=== PATIENT | female | born 1950 | race Two or more races ===

== ENCOUNTER 2024-02-16 11:05 | Outpatient (CLI) | payer OTHER ==
[2024-02-16 12:04] LABS: HEMATOCRIT 37.9 % (36.0-45.00); MEAN CORPUSCULAR HEMOGLOBIN 31.5 pg (27.00-32.0); MEAN CORPUSCULAR HGB CONC 33.2 g/dl (32.0-36.0); PLATELET COUNT 212 K/uL (150-450); RED BLOOD COUNT 3.99 M/uL (4.00-6.00); RED CELL DISTRIBUTION WIDTH 13.2 % (11.5-14.5)
[2024-02-16 12:05] LABS: HEMOGLOBIN 12.6 g/dL (12.0-15.00)
[2024-02-16 12:55] LABS: PH,URINE 6.5 (5.0-8.0); URINE APPEARANCE Turbid; URINE BILIRRUBIN Negative (NEGATIVE); URINE BLOOD Negative; URINE COLOR Yellow; URINE GLUCOSE Negative (NEGATIVE); URINE LEUKOCYTE Moderate; URINE NITRATE Positive; URINE PROTEIN Negative (NEGATIVE); URINE UROBILINOGEN 0.2 E.U./dl
[2024-02-16 12:59] LABS: URINE EPITHELIAL CELLS 10.6 uL (0.0-38.8); URINE RBC 5.7 uL (0.0-20.8); URINE WBC 161.5 uL (0.0-23.2)
[2024-02-16 13:04] LABS: URINE BACTERIA > 9821.5 uL (0.0-1933)
[2024-02-16 13:19] LABS: ALBUMIN 3.9 gm/dL (3.4-5.0); BILIRUBIN TOTAL 0.57 mg/dL (0.3-1.2); CALCIUM 9.3 mg/dL (8.5-10.1); CREATININE SERUM 0.75 mg/dL (0.55-1.02); GFR 75.33; GLOBULINA 3.4 G/DL (2.4-3.5); POTASSIUM 3.65 mEq/L (3.5-5.1); T4 TOTAL 5.01 UG/DL (4.8-13.9); TOTAL PROTEIN 7.3 gm/dL (6.4-8.2); TSH 0.373 uIU/mL (0.358-3.74)
[2024-02-16 13:47] LABS: T3 TOTAL 0.992 ng/ml (0.846-2.02); VITAMIN D3 25 HYDROXY 37.73 ng/ml (30-120)
== END 2024-02-16 11:07 | disposition home or self-care (01) ==
LOC: LAB 11:05
PROVIDERS: ATTEND Internal Medicine Cardiovascular Disease
DX: I10 Essential (primary) hypertension (principal); E11.9 Type 2 diabetes mellitus without complications; E03.9 Hypothyroidism, unspecified; E78.2 Mixed hyperlipidemia; E55.9 Vitamin D deficiency, unspecified; Z12.11 Encounter for screening for malignant neoplasm of colon

== ENCOUNTER 2024-02-17 13:45 | Outpatient (CLI) | payer OTHER ==
[2024-02-17 14:34] LABS: ob NEGATIVE (NEGATIVE)
== END 2024-02-17 13:46 | disposition home or self-care (01) ==
LOC: LAB 13:45
PROVIDERS: ATTEND Internal Medicine Cardiovascular Disease
DX: I10 Essential (primary) hypertension (principal); E11.9 Type 2 diabetes mellitus without complications; E03.9 Hypothyroidism, unspecified; E78.2 Mixed hyperlipidemia; E55.9 Vitamin D deficiency, unspecified; Z12.11 Encounter for screening for malignant neoplasm of colon

== ENCOUNTER 2024-06-04 11:19 | Outpatient (CLI) | payer OTHER ==
[2024-06-04 12:22] LABS: PH,URINE 6.5 (5.0-8.0); URINE APPEARANCE Clear; URINE BILIRRUBIN Negative (NEGATIVE); URINE BLOOD Negative; URINE COLOR Yellow; URINE GLUCOSE Negative (NEGATIVE); URINE LEUKOCYTE Moderate; URINE NITRATE Positive; URINE PROTEIN Negative (NEGATIVE); URINE UROBILINOGEN 0.2 E.U./dl
[2024-06-04 12:26] LABS: URINE EPITHELIAL CELLS 13.7 uL (0.0-38.8); URINE RBC 6.8 uL (0.0-20.8); URINE WBC 83.7 uL (0.0-23.2)
[2024-06-04 12:29] LABS: MEAN CELL VOLUME 92.9 fL (80.00-100.00); MEAN CORPUSCULAR HEMOGLOBIN 30.9 pg (27.00-32.0); MEAN CORPUSCULAR HGB CONC 33.3 g/dl (32.0-36.0); PLATELET COUNT 236 K/uL (150-450); RED BLOOD COUNT 4.19 M/uL (4.00-6.00); RED CELL DISTRIBUTION WIDTH 13.7 % (11.5-14.5)
[2024-06-04 12:54] LABS: CALCIUM 9.7 mg/dL (8.5-10.1); CHOL HDL RATIO 2.2 (0-5.0); CREATININE SERUM 0.82 mg/dL (0.55-1.02); GFR 67.96; POTASSIUM 3.81 mEq/L (3.5-5.1)
[2024-06-04 13:11] LABS: URINE BACTERIA > 9821.5 uL (0.0-1933)
== END 2024-06-04 11:25 | disposition home or self-care (01) ==
LOC: LAB 11:19
PROVIDERS: ATTEND Internal Medicine Cardiovascular Disease
DX: E11.9 Type 2 diabetes mellitus without complications (principal); I10 Essential (primary) hypertension; E03.9 Hypothyroidism, unspecified; E78.2 Mixed hyperlipidemia

== ENCOUNTER 2024-08-15 12:13 | Outpatient (CLI) | payer OTHER ==
[2024-08-15 13:09] LABS: HEMATOCRIT 36.6 % (36.0-45.00); HEMOGLOBIN 12.2 g/dL (12.0-15.00); MEAN CELL VOLUME 93.9 fL (80.00-100.00); MEAN CORPUSCULAR HEMOGLOBIN 31.2 pg (27.00-32.0); MEAN CORPUSCULAR HGB CONC 33.3 g/dl (32.0-36.0); PLATELET COUNT 217 K/uL (150-450); RED CELL DISTRIBUTION WIDTH 13.6 % (11.5-14.5)
[2024-08-15 13:20] LABS: PH,URINE 7.5 (5.0-8.0); URINE APPEARANCE Clear; URINE BILIRRUBIN Negative (NEGATIVE); URINE BLOOD Negative; URINE COLOR Yellow; URINE GLUCOSE Negative (NEGATIVE); URINE KETONE Negative (NEGATIVE); URINE LEUKOCYTE Moderate; URINE NITRATE Negative; URINE PROTEIN Negative (NEGATIVE); URINE UROBILINOGEN 0.2 E.U./dl
[2024-08-15 13:24] LABS: URINE EPITHELIAL CELLS 2.9 uL (0.0-38.8); URINE RBC 3.3 uL (0.0-20.8); URINE WBC 218.6 uL (0.0-23.2)
[2024-08-15 13:31] LABS: URINE BACTERIA > 9821.5 uL (0.0-1933)
[2024-08-15 14:10] LABS: CALCIUM 8.9 mg/dL (8.5-10.1); CREATININE SERUM 0.73 mg/dL (0.55-1.02); GFR 77.51; POTASSIUM 3.5 mEq/L (3.5-5.1)
== END 2024-08-15 12:17 | disposition home or self-care (01) ==
LOC: LAB 12:13
PROVIDERS: ATTEND Internal Medicine Cardiovascular Disease
DX: E11.9 Type 2 diabetes mellitus without complications (principal); E78.2 Mixed hyperlipidemia; I10 Essential (primary) hypertension

== ENCOUNTER → 2025-02-16 11:39 | Outpatient (CLI) | payer OTHER ==
[2025-02-16 13:02] LABS: HEMATOCRIT 36.6 % (36.0-45.00); HEMOGLOBIN 12.1 g/dL (12.0-15.00); MEAN CELL VOLUME 95.2 fL (80.00-100.00); MEAN CORPUSCULAR HEMOGLOBIN 31.4 pg (27.00-32.0); PLATELET COUNT 225 K/uL (150-450); RED BLOOD COUNT 3.84 M/uL (4.00-6.00); RED CELL DISTRIBUTION WIDTH 13.4 % (11.5-14.5)
[2025-02-16 13:11] LABS: PH,URINE 7.5 (5.0-8.0); URINE APPEARANCE Clear; URINE BILIRRUBIN Negative (NEGATIVE); URINE BLOOD Negative; URINE COLOR Yellow; URINE EPITHELIAL CELLS 2.3 uL (0.0-38.8); URINE GLUCOSE Negative (NEGATIVE); URINE KETONE Negative (NEGATIVE); URINE LEUKOCYTE Trace; URINE NITRATE Negative; URINE PROTEIN Negative (NEGATIVE); URINE UROBILINOGEN 0.2 E.U./dl; URINE WBC 12.3 uL (0.0-23.2)
[2025-02-16 13:18] LABS: URINE BACTERIA > 9821.5 uL (0.0-1933); URINE RBC 1.9 uL (0.0-20.8)
[2025-02-16 14:52] LABS: ALBUMIN 3.8 gm/dL (3.4-5.0); BILIRUBIN TOTAL 0.58 mg/dL (0.3-1.2); CALCIUM 9.2 mg/dL (8.5-10.1); CHOL HDL RATIO 1.9 (0-5.0); CREATININE SERUM 0.73 mg/dL (0.55-1.02); GFR 77.51; GLOBULINA 3.3 G/DL (2.4-3.5); POTASSIUM 3.94 mEq/L (3.5-5.1); T4 TOTAL 4.57 UG/DL (4.8-13.9); TOTAL PROTEIN 7.1 gm/dL (6.4-8.2)
[2025-02-16 14:55] LABS: TSH 0.253 uIU/mL (0.358-3.74)
[2025-02-16 15:01] LABS: T3 TOTAL 0.894 ng/ml (0.846-2.02); VITAMIN D3 25 HYDROXY 31.85 ng/ml (30-120)
== END | disposition home or self-care (01) ==
LOC: LAB 11:39
PROVIDERS: ATTEND Internal Medicine Cardiovascular Disease
DX: I10 Essential (primary) hypertension (principal); E11.9 Type 2 diabetes mellitus without complications; E03.9 Hypothyroidism, unspecified; E78.2 Mixed hyperlipidemia; D64.0 Hereditary sideroblastic anemia; Z12.11 Encounter for screening for malignant neoplasm of colon; E55.9 Vitamin D deficiency, unspecified; M81.0 Age-related osteoporosis without current pathological fracture

== ENCOUNTER 2025-02-20 14:13 | Outpatient (CLI) | payer OTHER ==
[2025-02-20 15:32] LABS: ob NEGATIVE (NEGATIVE)
== END 2025-02-20 14:15 | disposition home or self-care (01) ==
LOC: LAB 14:13
PROVIDERS: ATTEND Internal Medicine Cardiovascular Disease
DX: E03.9 Hypothyroidism, unspecified (principal); I10 Essential (primary) hypertension; E11.9 Type 2 diabetes mellitus without complications; E78.2 Mixed hyperlipidemia; D64.0 Hereditary sideroblastic anemia; Z12.11 Encounter for screening for malignant neoplasm of colon; M81.0 Age-related osteoporosis without current pathological fracture

== ENCOUNTER 2025-06-07 11:41 | Outpatient (CLI) | payer OTHER ==
[2025-06-07 12:32] LABS: URINE APPEARANCE Clear; URINE BILIRRUBIN Negative (NEGATIVE); URINE BLOOD Negative; URINE COLOR Yellow; URINE GLUCOSE Negative (NEGATIVE); URINE KETONE Trace (NEGATIVE); URINE LEUKOCYTE Moderate; URINE NITRATE Positive; URINE PROTEIN Negative (NEGATIVE); URINE UROBILINOGEN 0.2 E.U./dl
[2025-06-07 12:37] LABS: URINE EPITHELIAL CELLS 10.4 uL (0.0-38.8); URINE RBC 2.7 uL (0.0-20.8); URINE WBC 55.5 uL (0.0-23.2)
[2025-06-07 12:48] LABS: BASO % 1.0 % (0.1-1.2); EOS # 0.04 (0.04-0.54); EOS % 0.8 % (0.7-7.0); LYMPH # 1.52 (1.18-3.74); LYMPH % 31.4 % (19.3-53.1); MEAN PLATELET VOLUME 10.60 fl (9.4-12.4); MONO # 0.30 (0.24-0.82); MONO % 6.2 % (4.7-12.5); NEUT # 2.92 (1.56-6.13); NEUT % 60.4 % (34.0-71.1); RED CELL DISTRIBUTION WIDTH 12.9 % (11.6-14.4)
[2025-06-07 13:06] LABS: BUN CREA RATIO 26.0 (7.0-25.0); CHOL HDL RATIO 1.7 (0-5.0); CREATININE SERUM 0.9 mg/dL (0.55-1.02); GFR 60.88; GLUCOSE FASTING 134.0 mg/dL (65-100); HDL 73.0 mg/dl (40-60); LDL 41.0 mg/dl (0-130); OSMOLALITY SERUM 292.0 MOSM/KG (275-295); T4 TOTAL 4.62 UG/DL (4.8-13.9); TSH 0.484 uIU/mL (0.358-3.74); VLDL 13.0 (0-39)
[2025-06-07 13:32] LABS: URINE BACTERIA > 9821.5 uL (0.0-1933); URINE CAST 0.14 uL (0.0-1.40)
== END 2025-06-07 11:47 | disposition home or self-care (01) ==
LOC: LAB 11:41
PROVIDERS: ATTEND Internal Medicine Cardiovascular Disease
DX: I10 Essential (primary) hypertension (principal); E11.9 Type 2 diabetes mellitus without complications; E03.9 Hypothyroidism, unspecified; E78.2 Mixed hyperlipidemia

== ENCOUNTER 2025-10-21 13:05 | Outpatient (CLI) | payer OTHER ==
[2025-10-21 14:06] LABS: BASO % 0.7 % (0.1-1.2); EOS # 0.03 (0.04-0.54); EOS % 0.7 % (0.7-7.0); LYMPH # 1.53 (1.18-3.74); LYMPH % 35.0 % (19.3-53.1); MEAN PLATELET VOLUME 10.70 fl (9.4-12.4); MONO # 0.33 (0.24-0.82); MONO % 7.6 % (4.7-12.5); NEUT # 2.44 (1.56-6.13); NEUT % 55.8 % (34.0-71.1); RED CELL DISTRIBUTION WIDTH 12.7 % (11.6-14.4)
[2025-10-21 14:46] LABS: URINE APPEARANCE Clear; URINE BILIRRUBIN Negative (NEGATIVE); URINE BLOOD Negative; URINE COLOR Yellow; URINE GLUCOSE Negative (NEGATIVE); URINE KETONE Negative (NEGATIVE); URINE LEUKOCYTE Trace; URINE NITRATE Negative; URINE PROTEIN Negative (NEGATIVE); URINE UROBILINOGEN 0.2 E.U./dl
[2025-10-21 14:49] LABS: URINE EPITHELIAL CELLS 4.2 uL (0.0-38.8); URINE RBC 5.9 uL (0.0-20.8); URINE WBC 24.6 uL (0.0-23.2)
[2025-10-21 14:51] LABS: BUN CREA RATIO 25.0 (7.0-25.0); CHOL HDL RATIO 2.2 (0-5.0); CREATININE SERUM 0.8 mg/dL (0.55-1.02); GFR 69.55; GLUCOSE FASTING 145.0 mg/dL (65-100); HDL 83.0 mg/dl (40-60); LDL 79.0 mg/dl (0-130); OSMOLALITY SERUM 292.0 MOSM/KG (275-295); T4 TOTAL 4.41 UG/DL (4.8-13.9); TSH 0.534 uIU/mL (0.358-3.74); VLDL 18.0 (0-39)
[2025-10-21 15:07] LABS: URINE BACTERIA > 9821.5 uL (0.0-1933); URINE CAST 0.00 uL (0.0-1.40)
== END 2025-10-21 13:10 | disposition home or self-care (01) ==
LOC: LAB 13:05
PROVIDERS: ATTEND Internal Medicine Cardiovascular Disease
DX: E11.9 Type 2 diabetes mellitus without complications (principal); E03.9 Hypothyroidism, unspecified; E78.2 Mixed hyperlipidemia; I10 Essential (primary) hypertension